=== PATIENT | male | born 1985 | race Caucasian/White ===

== ENCOUNTER 2017-05-05 13:12 | Emergency (ER) | payer OTHER, BC ==
[~2017-05-05] VITALS: Ht 185.4 cm; Wt 113.4 kg
[~2017-05-05 13:12] MED LIST: ALBU90OI INH; AMOX500 PO; CETI10 PO; CIPR500 PO; DAYQUIL; DIPATR PO; FAMC500 PO; HYDACE5 PO; IBUP800 PO; NAPR500 PO; OXYACE5T PO; PENVK250 PO; PROACE100 PO; PROM25 PO; PSEUDOEPHEDRINE PO; RXPENVK250 PO; RXPROACE PO; SULTRIDS PO; TRAM50 PO
== END 2017-05-05 15:06 | disposition home or self-care (01) ==
LOC: ER 13:12
DX: S60.022A Contusion of left index finger without damage to nail, initial encounter (principal); R23.8 Other skin changes; W22.8XXA Striking against or struck by other objects, initial encounter
CPT/HCPCS: 29130; 73130; 99283

== ENCOUNTER 2022-04-20 11:26 | Day surgery (SDC) | payer BC ==
[~2022-04-20] VITALS: Ht 203.2 cm; Wt 117.6 kg
[2022-04-20] MEDS ORDERED: PANT40 (11:49)
--- NOTE | 2022-04-20 14:07 | NUR ---
Patient up to Ambulate independently. Gait steady. Discharge instructions reviewed with patient. Patient verbalizes understanding. Copy given to patient to take home. Lungs clear T/O to Auscultation. Discharged via wheelchair to private car for ride home WITH .
== END 2022-04-20 14:00 | disposition home or self-care (01) ==
LOC: ORSCSDS 11:26
PROVIDERS: Internal Medicine Gastroenterology
PROC: 0DB68ZX Excision of Stomach, Via Natural or Artificial Opening Endoscopic, Diagnostic (ICD-10-PCS; principal; 2022-04-20 13:15)
PROC: 0DB58ZX Excision of Esophagus, Via Natural or Artificial Opening Endoscopic, Diagnostic (ICD-10-PCS; principal; 2022-04-20 13:15)
DX: K21.00 Gastro-esophageal reflux disease with esophagitis, without bleeding (principal); K31.A0 Gastric intestinal metaplasia, unspecified; R13.10 Dysphagia, unspecified; F45.8 Other somatoform disorders; Z87.891 Personal history of nicotine dependence; K29.50 Unspecified chronic gastritis without bleeding
CPT/HCPCS: 88305; 88342; J2250; J2704; J7120

== ENCOUNTER 2022-08-05 09:11 | Day surgery (SDC) | payer BC ==
[~2022-08-05] VITALS: Ht 203.2 cm; Wt 116.6 kg
[~2022-08-05 09:11] MED LIST changes: +PANT40
[2022-08-05] MEDS ORDERED: SUCR1 (09:23)
--- NOTE | 2022-08-05 10:26 | NUR ---
08/05/22 1026 LEFTY GORE VERSED 2MG IV GIVEN PRE EGD PER DR DENNIS. PT WAS DIFFICULT TO SEDATED LAST EGD THIS YEAR.
--- NOTE | 2022-08-05 11:05 | NUR ---
08/05/22 1105 LEFTY GORE RN DC FLUIDS IN PRE OP CHARTING W/O ACTUALLY DC THEM.
[2022-08-05 11:09] VITALS: BP 122/76
--- NOTE | 2022-08-05 12:21 | NUR ---
08/05/22 1221 TY DAVEY IV FLUIDS - LR DC'D IN POST OP.
== END 2022-08-05 12:21 | disposition home or self-care (01) ==
LOC: ORSCSDS 09:11
PROVIDERS: Internal Medicine Gastroenterology
PROC: 0DJ08ZZ Inspection of Upper Intestinal Tract, Via Natural or Artificial Opening Endoscopic (ICD-10-PCS; principal; 2022-08-05 11:30)
DX: R13.10 Dysphagia, unspecified (principal); K21.00 Gastro-esophageal reflux disease with esophagitis, without bleeding; Z79.899 Other long term (current) drug therapy
CPT/HCPCS: J2250; J2704; J7120